=== PATIENT | female | born 1940 | race Caucasian/White ===

== ENCOUNTER 2019-05-20 11:34 | Emergency (ER) | payer OTHER ==
[~2019-05-20] VITALS: Ht 170.2 cm; Wt 70.3 kg
[2019-05-20 13:16] LABS: BASOPHIL % 0.1 % (0-2); PLATELET COUNT 207 x10^3mcL (130-400)
[2019-05-20 13:33] LABS: CALCIUM 9.1 mg/dL (8.5-10.1); CARBON DIOXIDE 31.9 mmol/L (21-32); CHLORIDE SERUM 100 mmol/L (98-107); CREATININE SERUM 1.2 mg/dL (0.6-1.0); GLUCOSE SERUM 145 mg/dL (74-106); POTASSIUM SERUM 3.2 mmol/L (3.5-5.1); SODIUM SERUM 139 mmol/L (136-145)
[2019-05-20 13:38] LABS: ALBUMIN 3.7 g/dL (3.4-5.0); ALKALINE PHOSPHATASE 86 U/L (46-116); ALT/SGPT 14 U/L (14-59); AST/SGOT 17 U/L (15-37); BILIRUBIN TOTAL 0.4 mg/dL (0.20-1.00); TOTAL PROTEIN, SERUM 6.6 g/dL (6.4-8.2)
[2019-05-20 14:17] VITALS: BP 118/58
== END 2019-05-20 14:17 | disposition short-term general hospital (02) ==
LOC: ED 11:34
PROVIDERS: Specialist
DX: S42.401A Unspecified fracture of lower end of right humerus, initial encounter for closed fracture (principal); I10 Essential (primary) hypertension; E87.6 Hypokalemia; N28.9 Disorder of kidney and ureter, unspecified; Z88.6 Allergy status to analgesic agent; Z88.8 Allergy status to other drugs, medicaments and biological substances; Z90.710 Acquired absence of both cervix and uterus; W18.11XA Fall from or off toilet without subsequent striking against object, initial encounter; Y93.89 Activity, other specified; Y92.89 Other specified places as the place of occurrence of the external cause; Y99.8 Other external cause status
CPT/HCPCS: J0696; J1580; J2270; J2405; J7030; J7060; Q0092

== ENCOUNTER 2019-06-26 12:27 | Emergency (ER) | payer OTHER ==
[~2019-06-26] VITALS: Ht 170.2 cm; Wt 68.0 kg
[2019-06-26 12:30] VITALS: Ht 170.2 cm; Wt 68.0 kg
[2019-06-26 13:11] LABS: BASOPHIL % 0.3 % (0-2); PLATELET COUNT 312 x10^3mcL (130-400)
[2019-06-26 13:20] LABS: CALCIUM 8.9 mg/dL (8.5-10.1); CHLORIDE SERUM 100 mmol/L (98-107); CREATININE SERUM 1.1 mg/dL (0.6-1.0); GLUCOSE SERUM 126 mg/dL (74-106); POTASSIUM SERUM 3.4 mmol/L (3.5-5.1); SODIUM SERUM 135 mmol/L (136-145)
[2019-06-26 13:21] LABS: RED CELL DISTRIBUTION WIDTH 15.2 % (11.5-14.5)
[2019-06-26 13:24] LABS: ALKALINE PHOSPHATASE 101 U/L (46-116); ALT/SGPT 9 U/L (14-59); AST/SGOT 10 U/L (15-37); BILIRUBIN TOTAL 0.4 mg/dL (0.20-1.00); TOTAL PROTEIN, SERUM 6.5 g/dL (6.4-8.2)
[2019-06-26 13:25] LABS: ALBUMIN 3.1 g/dL (3.4-5.0)
[2019-06-26 13:37] LABS: UA SPECIFIC GRAVITY 1.015 (1.005-1.035); microscopic required? YES; urine erythrocyte 3+ (NEGATIVE)
[2019-06-26 17:39] VITALS: BP 111/48
== END 2019-06-26 17:40 | disposition home or self-care (01) ==
LOC: ED 12:27
PROVIDERS: Emergency Medicine
DX: N39.0 Urinary tract infection, site not specified (principal); R42 Dizziness and giddiness; I10 Essential (primary) hypertension; G89.29 Other chronic pain; Z90.710 Acquired absence of both cervix and uterus; Z88.8 Allergy status to other drugs, medicaments and biological substances
CPT/HCPCS: J0696; J7030; J7060